=== PATIENT | male | born 1955 | race Caucasian/White ===

== ENCOUNTER 2018-03-23 11:02 | Inpatient (IN) | payer MEDICAID ==
[~2018-03-23] VITALS: Ht 175.3 cm; Wt 77.8 kg
[2018-03-23 11:35] LABS: BASOPHILS % (AUTO) 0.1 % (0-1); EOSINOPHILS # (AUTO) 0.5 X10'3 (0-0.9); EOSINOPHILS % (AUTO) 3.3 % (0-6); HEMATOCRIT 37.5 % (42.0-52.0); HEMOGLOBIN 12.1 g/dl (14.0-17.9); LYMPHOCYTES # (AUTO) 0.8 X10'3 (1.1-4.8); LYMPHOCYTES % (AUTO) 5.1 % (21-51); MEAN CORPUSCULAR HGB CONC 32.3 % (33.0-36.5); MEAN CORPUSCULAR VOLUME 83.7 FL (78-98); MEAN PLATELET VOLUME 7.6 FL (7.4-10.4); MONOCYTES % (AUTO) 6.3 % (2-12); NEUTROPHILS % (AUTO) 85.2 % (42-75); PLATELET COUNT 530 X10'3 (140-440); RED BLOOD COUNT 4.48 X10'6 (4.70-6.10); RED CELL DISTRIBUTION WIDTH 14.4 % (11.5-14.5); WHITE BLOOD COUNT 16.4 X10'3 (4.5-11.0)
[2018-03-23 11:50] LABS: ALANINE AMINOTRANSFERASE 26 U/L (12-78); ALBUMIN 2.1 G/DL (3.4-5.0); ALBUMIN/GLOBULIN RATIO 0.4 (1.1-1.5); ALKALINE PHOSPHATASE 66 IU/L (46-116); ANION GAP 13 (8-16); ASPARTATE AMINO TRANSFERASE 27 U/L (10-37); BILIRUBIN,TOTAL 0.7 MG/DL (0.1-1.0); BLOOD UREA NITROGEN 13 MG/DL (7-18); BUN/CREATININE RATIO 14.8 (5.4-32.0); CALCIUM 9.3 MG/DL (8.5-10.1); CHLORIDE 101 MMOL/L (99-107); CREATININE 0.88 MG/DL (0.60-1.10); GLUCOSE 112 MG/DL (70-104); POTASSIUM 3.7 MMOL/L (3.5-5.1); SODIUM 135 MMOL/L (135-145); TOTAL CARBON DIOXIDE 21.2 MMOL/L (24-32); TOTAL PROTEIN 6.8 G/DL (6.4-8.2); eGFR 87 ML/MIN
[2018-03-23 11:58] LABS: INR 1.2 INR; PARTIAL THROMBOPLASTIN TIME 35 SECONDS (22-32)
[2018-03-23 12:19] LABS: CLARITY,URINE CLEAR (Clear); COLOR,URINE YELLOW (Yellow); GLUCOSE, URINE NEGATIVE (Neg); KETONES,URINE NEGATIVE (Neg); LEUKOCYTE ESTERASE ,URINE NEGATIVE (Neg); NITRITES, URINE NEGATIVE (Neg); OCCULT BLOOD,URINE NEGATIVE (Neg); PH,URINE 6.5 (4.8-8.0); PROTEIN,URINE NEGATIVE (Neg)
[2018-03-23 12:20] LABS: UA COLLECTION TYPE CLN CATCH MIDSTREAM
[2018-03-23] MEDS ORDERED: normal saline 1000ML IV soln IVB ONE (12:20)
[2018-03-23] MEDS ORDERED: levoFLOXACIN-Levaquin 750MG/D5 150 ML IV STA (12:25)
[2018-03-23] MEDS ORDERED: METF500T PO (14:41)
[2018-03-23] MEDS ORDERED: pneumococcal 23-VAL P-sac vacc 25 mcg/0.5ml vial IMVAC ONE (15:00)
[2018-03-23] MEDS ORDERED: magnesium Cl slow-release 64mg tablet PO PRN (15:25)
[2018-03-23] MEDS ORDERED: HYDROcodone/acetaminophen 5mg/325mg tablet PO PRN (15:25)
[2018-03-23] MEDS ORDERED: acetaminophen 325mg tablet PO PRN ×2 (15:25)
[2018-03-23] MEDS ORDERED: magnesium 4gm in 100ml NS 100 ML IV PRN (15:25)
[2018-03-23] MEDS ORDERED: HYDROcodone/acetaminophen 10/325mg tab PO PRN (15:25)
[2018-03-23] MEDS ORDERED: ondansetron/PF 4mg/2ml inj IV PRN (15:25)
[2018-03-23] MEDS ORDERED: mag hydrox/Alum hydrox/simeth 30ml oral suspension PO PRN (15:25)
[2018-03-23] MEDS ORDERED: magnesium hydroxide 30ml (MOM) UD suspension PO PRN (15:25)
[2018-03-23] MEDS ORDERED: potassium Cl 40MEQ/NS 500ml 500 ML IV PRN ×2 (15:25)
[2018-03-23] MEDS ORDERED: potassium Cl 20 mEq SR tablet PO PRN (15:25)
[2018-03-23] MEDS ORDERED: dextrose 50%-water 50ml dispensing syringe IV PRN ×2 (15:35)
[2018-03-23] MEDS ORDERED: dextrose ORAL solution 15 GM/59 ML bottle PO PRN ×2 (15:35)
[2018-03-23] MEDS ORDERED: insulin Lispro (HumaLOG) vial - multi-dose SQ SCH (15:35)
[2018-03-23] MEDS ORDERED: MESSAGE TO PHARMACY PO ONE (15:35)
[2018-03-23] MEDS ORDERED: glucagon, human recombinant 1mg kit SUBCUT PRN (15:35)
[2018-03-23] MEDS ORDERED: CefTRIAXone/D5W-Rocephin 1gm 50 ML IV SCH (16:00)
[2018-03-23] MEDS ORDERED: azithromycin/NS 500mg/250ml 250 ML IV SCH (16:00)
[2018-03-23 16:09] LABS: HEMOGLOBIN A1C 6.2 % (4.5-6.2)
[2018-03-23 16:20] LABS: URINE AMPHETAMINE SCREEN POSITIVE (Neg); URINE BARBITUATE SCREEN NEGATIVE (Neg); URINE BENZODIAZEPINES SCREEN NEGATIVE (Neg); URINE CANNABINOID SCREEN NEGATIVE (Neg); URINE COCAINE SCREEN NEGATIVE (Neg); URINE METHADONE SCREEN NEGATIVE (Neg); URINE OPIATE SCREEN NEGATIVE (Neg); URINE PHENCYCLIDINE SCREEN NEGATIVE (Neg)
[2018-03-23 17:00] VITALS: BP 147/91
[2018-03-23 19:00] VITALS: BP 152/84
[2018-03-23] MEDS: furosemide 40mg/4ml inj IV SCH (19:22)
[2018-03-23] MEDS: metoprolol tartrate 12.5mg (1/2 tablet) PO SCH (19:22)
[2018-03-23] MEDS ORDERED: temazepam 15mg capsule PO PRN (21:00)
[2018-03-23] MEDS: insulin glargine (Lantus) pen - multi-dose SQ SCH (21:00)
[2018-03-23 23:00] VITALS: BP 146/72
[2018-03-24 02:41] LABS: BASOPHILS # (AUTO) 0.1 X10'3 (0-0.2); BASOPHILS % (AUTO) 0.6 % (0-1); EOSINOPHILS # (AUTO) 0.5 X10'3 (0-0.9); EOSINOPHILS % (AUTO) 3.3 % (0-6); HEMATOCRIT 36.2 % (42.0-52.0); HEMOGLOBIN 11.7 g/dl (14.0-17.9); LYMPHOCYTES # (AUTO) 0.9 X10'3 (1.1-4.8); LYMPHOCYTES % (AUTO) 5.5 % (21-51); MEAN CORPUSCULAR HEMOGLOBIN 27.1 PG (27.0-31.0); MEAN CORPUSCULAR HGB CONC 32.3 % (33.0-36.5); MEAN CORPUSCULAR VOLUME 83.8 FL (78-98); MEAN PLATELET VOLUME 8.1 FL (7.4-10.4); MONOCYTES # (AUTO) 0.7 X10'3 (0-0.9); MONOCYTES % (AUTO) 4.4 % (2-12); NEUTROPHILS # (AUTO) 13.7 X10'3 (1.8-7.7); NEUTROPHILS % (AUTO) 86.2 % (42-75); PLATELET COUNT 575 X10'3 (140-440); RED BLOOD COUNT 4.32 X10'6 (4.70-6.10); RED CELL DISTRIBUTION WIDTH 14.8 % (11.5-14.5); WHITE BLOOD COUNT 15.9 X10'3 (4.5-11.0)
[2018-03-24 02:44] LABS: ALANINE AMINOTRANSFERASE 23 U/L (12-78); ALBUMIN 1.8 G/DL (3.4-5.0); ALBUMIN/GLOBULIN RATIO 0.4 (1.1-1.5); ALKALINE PHOSPHATASE 67 IU/L (46-116); ANION GAP 12 (8-16); ASPARTATE AMINO TRANSFERASE 26 U/L (10-37); BILIRUBIN,TOTAL 0.5 MG/DL (0.1-1.0); BLOOD UREA NITROGEN 15 MG/DL (7-18); CALCIUM 8.9 MG/DL (8.5-10.1); CHLORIDE 102 MMOL/L (99-107); CREATININE 0.94 MG/DL (0.60-1.10); GLUCOSE 107 MG/DL (70-104); POTASSIUM 3.7 MMOL/L (3.5-5.1); SODIUM 137 MMOL/L (135-145); TOTAL CARBON DIOXIDE 22.8 MMOL/L (24-32); TOTAL PROTEIN 6.3 G/DL (6.4-8.2); eGFR 81 ML/MIN
[2018-03-24 02:48] LABS: CHOL/HDL RATIO 5.1 (0.00-4.99); CHOLESTEROL 107 MG/DL (0-200); HDL CHOLESTEROL 21 MG/DL (35-60); LDL CHOLESTEROL 74 MG/DL (50-100); MAGNESIUM 1.9 MG/DL (1.5-2.4); PHOSPHORUS 3.5 MG/DL (2.3-4.5); TRIGLYCERIDES 49 MG/DL (20-135)
[2018-03-24 03:00] VITALS: BP 137/83
[2018-03-24 07:00] VITALS: BP 147/87
[2018-03-24] MEDS: aspirin 325mg tablet PO SCH (07:36)
[2018-03-24] MEDS: levoFLOXACIN-Levaquin 750MG/D5 150 ML IV SCH (07:37)
[2018-03-24] MEDS: furosemide 40mg/4ml inj IV SCH (07:37)
[2018-03-24] MEDS: metoprolol tartrate 12.5mg (1/2 tablet) PO SCH ×2 (07:37→19:20)
[2018-03-24] MEDS: enoxaparin 40mg/0.4ml syringe SUBCUT SCH (07:38)
[2018-03-24] MEDS: K and/or MAG REPLACEMENT MC SCH (08:00)
[2018-03-24 11:00] VITALS: BP 127/75
[2018-03-24 19:00] VITALS: BP 121/82
[2018-03-24] MEDS: lactobacillus rhamnosus 10,000 MMU CELLS/CAPSULE PO SCH (19:20)
[2018-03-24] MEDS: insulin glargine (Lantus) pen - multi-dose SQ SCH (21:00)
[2018-03-24 23:00] VITALS: BP 121/76
[2018-03-25 03:00] VITALS: BP 138/79
[2018-03-25 06:06] LABS: BASOPHILS % (AUTO) 0.4 % (0-1); EOSINOPHILS # (AUTO) 1.1 X10'3 (0-0.9); HEMATOCRIT 35.9 % (42.0-52.0); HEMOGLOBIN 11.4 g/dl (14.0-17.9); LYMPHOCYTES # (AUTO) 0.9 X10'3 (1.1-4.8); LYMPHOCYTES % (AUTO) 7.9 % (21-51); MEAN CORPUSCULAR HEMOGLOBIN 26.6 PG (27.0-31.0); MEAN CORPUSCULAR HGB CONC 31.8 % (33.0-36.5); MEAN CORPUSCULAR VOLUME 83.6 FL (78-98); MONOCYTES # (AUTO) 0.7 X10'3 (0-0.9); MONOCYTES % (AUTO) 6.5 % (2-12); NEUTROPHILS # (AUTO) 8.5 X10'3 (1.8-7.7); NEUTROPHILS % (AUTO) 75.2 % (42-75); PLATELET COUNT 533 X10'3 (140-440); RED CELL DISTRIBUTION WIDTH 14.7 % (11.5-14.5); WHITE BLOOD COUNT 11.2 X10'3 (4.5-11.0)
[2018-03-25 06:38] LABS: ANION GAP 12 (8-16); BLOOD UREA NITROGEN 17 MG/DL (7-18); CALCIUM 8.6 MG/DL (8.5-10.1); CHLORIDE 104 MMOL/L (99-107); CREATININE 0.85 MG/DL (0.60-1.10); GLUCOSE 89 MG/DL (70-104); PHOSPHORUS 2.8 MG/DL (2.3-4.5); SODIUM 141 MMOL/L (135-145); TOTAL CARBON DIOXIDE 24.7 MMOL/L (24-32); eGFR > 90 ML/MIN
[2018-03-25 06:39] LABS: ALANINE AMINOTRANSFERASE 24 U/L (12-78); ALBUMIN 1.6 G/DL (3.4-5.0); ALBUMIN/GLOBULIN RATIO 0.4 (1.1-1.5); ALKALINE PHOSPHATASE 63 IU/L (46-116); ASPARTATE AMINO TRANSFERASE 28 U/L (10-37); BILIRUBIN,TOTAL 0.4 MG/DL (0.1-1.0); TOTAL PROTEIN 5.8 G/DL (6.4-8.2)
[2018-03-25 06:56] VITALS: BP 131/77
[2018-03-25] MEDS: K and/or MAG REPLACEMENT MC SCH (08:00)
[2018-03-25] MEDS: furosemide 40mg/4ml inj IV SCH (08:16)
[2018-03-25] MEDS: levoFLOXACIN-Levaquin 750MG/D5 150 ML IV SCH (08:17)
[2018-03-25] MEDS: lactobacillus rhamnosus 10,000 MMU CELLS/CAPSULE PO SCH ×2 (08:18→19:13)
[2018-03-25] MEDS: metoprolol tartrate 12.5mg (1/2 tablet) PO SCH ×2 (08:18→19:13)
[2018-03-25] MEDS: enoxaparin 40mg/0.4ml syringe SUBCUT SCH (08:18)
[2018-03-25] MEDS: aspirin 325mg tablet PO SCH (08:22)
[2018-03-25] MEDS: potassium Cl 20 mEq SR tablet PO PRN ×3 (12:09→22:58)
[2018-03-25 14:48] VITALS: BP 113/67
[2018-03-25 19:00] VITALS: BP 140/74
[2018-03-25] MEDS: insulin glargine (Lantus) pen - multi-dose SQ SCH (21:00)
[2018-03-25 23:00] VITALS: BP 134/78
[2018-03-26 03:00] VITALS: BP 143/83
[2018-03-26 05:24] LABS: BASOPHILS % (AUTO) 0.5 % (0-1); EOSINOPHILS # (AUTO) 1.3 X10'3 (0-0.9); EOSINOPHILS % (AUTO) 11.8 % (0-6); HEMATOCRIT 35.3 % (42.0-52.0); HEMOGLOBIN 11.3 g/dl (14.0-17.9); LYMPHOCYTES # (AUTO) 1.1 X10'3 (1.1-4.8); LYMPHOCYTES % (AUTO) 10.5 % (21-51); MEAN CORPUSCULAR HEMOGLOBIN 26.7 PG (27.0-31.0); MEAN CORPUSCULAR HGB CONC 32.1 % (33.0-36.5); MEAN CORPUSCULAR VOLUME 83.1 FL (78-98); MEAN PLATELET VOLUME 7.8 FL (7.4-10.4); MONOCYTES # (AUTO) 0.8 X10'3 (0-0.9); MONOCYTES % (AUTO) 7.9 % (2-12); NEUTROPHILS # (AUTO) 7.4 X10'3 (1.8-7.7); NEUTROPHILS % (AUTO) 69.3 % (42-75); PLATELET COUNT 649 X10'3 (140-440); RED BLOOD COUNT 4.24 X10'6 (4.70-6.10); RED CELL DISTRIBUTION WIDTH 14.6 % (11.5-14.5); WHITE BLOOD COUNT 10.7 X10'3 (4.5-11.0)
[2018-03-26 05:36] LABS: ALANINE AMINOTRANSFERASE 27 U/L (12-78); ALBUMIN 1.7 G/DL (3.4-5.0); ALBUMIN/GLOBULIN RATIO 0.4 (1.1-1.5); ALKALINE PHOSPHATASE 60 IU/L (46-116); ANION GAP 9 (8-16); ASPARTATE AMINO TRANSFERASE 25 U/L (10-37); BILIRUBIN,TOTAL 0.3 MG/DL (0.1-1.0); BLOOD UREA NITROGEN 18 MG/DL (7-18); BUN/CREATININE RATIO 20.7 (5.4-32.0); CALCIUM 8.6 MG/DL (8.5-10.1); CHLORIDE 106 MMOL/L (99-107); CREATININE 0.87 MG/DL (0.60-1.10); GLUCOSE 95 MG/DL (70-104); MAGNESIUM 1.8 MG/DL (1.5-2.4); POTASSIUM 3.8 MMOL/L (3.5-5.1); SODIUM 140 MMOL/L (135-145); TOTAL CARBON DIOXIDE 24.9 MMOL/L (24-32); TOTAL PROTEIN 5.8 G/DL (6.4-8.2); eGFR 89 ML/MIN
[2018-03-26 06:00] VITALS: BP 144/85
[2018-03-26] MEDS: levoFLOXACIN-Levaquin 750MG/D5 150 ML IV SCH (07:46)
[2018-03-26] MEDS: furosemide 40mg/4ml inj IV SCH (07:46)
[2018-03-26] MEDS: enoxaparin 40mg/0.4ml syringe SUBCUT SCH (07:47)
[2018-03-26] MEDS: metoprolol tartrate 12.5mg (1/2 tablet) PO SCH (07:47)
[2018-03-26] MEDS: aspirin 325mg tablet PO SCH (07:48)
[2018-03-26] MEDS: lactobacillus rhamnosus 10,000 MMU CELLS/CAPSULE PO SCH (07:48)
[2018-03-26 11:00] VITALS: BP 113/77
[2018-03-26] MEDS ORDERED: FURO40TA4 PO (13:13)
[2018-03-26] MEDS ORDERED: LEVO750T21 PO (13:13)
[2018-03-26] MEDS ORDERED: LACT1CAP26 PO (13:13)
[2018-03-26] MEDS ORDERED: ATOR10TA PO (13:13)
[2018-03-26] MEDS ORDERED: ASPI81TA52 PO (13:13)
[2018-03-26] MEDS ORDERED: METO25TA6 PO (13:13)
== END 2018-03-26 16:39 | disposition home or self-care (01) | DRG 720 ==
LOC: ER 11:03 → ED HOLD 15:21 → PCU 3S 17:00
PROVIDERS: ADMIT Family Medicine; ATTEND Hospitalist
DX: A41.9 Sepsis, unspecified organism (principal); I21.A1 Myocardial infarction type 2; I50.21 Acute systolic (congestive) heart failure; E11.40 Type 2 diabetes mellitus with diabetic neuropathy, unspecified; I11.0 Hypertensive heart disease with heart failure; J18.9 Pneumonia, unspecified organism; R91.8 Other nonspecific abnormal finding of lung field; E78.5 Hyperlipidemia, unspecified; R09.02 Hypoxemia; Z66 Do not resuscitate; Z82.49 Family history of ischemic heart disease and other diseases of the circulatory system; Z83.3 Family history of diabetes mellitus; Z91.14 Patient's other noncompliance with medication regimen; Z87.891 Personal history of nicotine dependence; Z79.84 Long term (current) use of oral hypoglycemic drugs; Z81.1 Family history of alcohol abuse and dependence; Z80.8 Family history of malignant neoplasm of other organs or systems; Z79.899 Other long term (current) drug therapy; Z71.51 Drug abuse counseling and surveillance of drug abuser; Z79.82 Long term (current) use of aspirin
CPT/HCPCS: 36415; 71045; 80053; 80061; 80305; 81003; 82948; 83036; 83605; 83735; 83880; 84100; 84145; 84484; 85025; 85610; 85730; 87040; 87070; 87502; 87503; 90732; 93005; 93306; 96365; 99285; G0378; J0696; J1650; J1815; J1940; J1956

== ENCOUNTER 2018-11-23 08:21 | Day surgery (SDC) | payer MEDICAID ==
[~2018-11-23] VITALS: Ht 175.3 cm; Wt 80.3 kg
[2018-11-23] VITALS (20 sets, daily range): BP systolic 108–155; BP diastolic 62–90
[~2018-11-23 08:21] MED LIST: ASPI81TA52 PO; ATOR10TA PO; LACT1CAP26 PO; METF500T PO; METO25TA6 PO
[2018-11-23] MEDS ORDERED: normal saline 1000ml 1,000 ML IV PRN (08:45)
[2018-11-23] MEDS ORDERED: ASPI81TA52 PO (09:00)
[2018-11-23] MEDS ORDERED: ATOR10TA87 PO (09:00)
[2018-11-23] MEDS ORDERED: METO5DIS PO (09:00)
[2018-11-23] MEDS ORDERED: METF500T PO (09:00)
[2018-11-23] MEDS ORDERED: CLOP75TA15 PO (09:00)
[2018-11-23] MEDS ORDERED: FURO40TA4 PO (09:02)
[2018-11-23 09:08] LABS: BASOPHILS # (AUTO) 0.1 X10'3 (0-0.2); BASOPHILS % (AUTO) 0.9 % (0-1); EOSINOPHILS # (AUTO) 0.5 X10'3 (0-0.9); EOSINOPHILS % (AUTO) 6.2 % (0-6); HEMATOCRIT 43.5 % (42.0-52.0); HEMOGLOBIN 14.4 g/dl (14.0-17.9); LYMPHOCYTES # (AUTO) 1.4 X10'3 (1.1-4.8); LYMPHOCYTES % (AUTO) 17.6 % (21-51); MEAN CORPUSCULAR HGB CONC 33.2 g/dL (33.0-36.5); MEAN CORPUSCULAR VOLUME 87.3 FL (78-98); MEAN PLATELET VOLUME 7.6 FL (7.4-10.4); MONOCYTES # (AUTO) 0.9 X10'3 (0-0.9); MONOCYTES % (AUTO) 11.5 % (2-12); NEUTROPHILS # (AUTO) 5.1 X10'3 (1.8-7.7); NEUTROPHILS % (AUTO) 63.8 % (42-75); PLATELET COUNT 246 X10'3 (140-440); RED BLOOD COUNT 4.98 X10'6 (4.70-6.10); RED CELL DISTRIBUTION WIDTH 13.3 % (11.5-14.5); WHITE BLOOD COUNT 7.9 X10'3 (4.5-11.0)
[2018-11-23 09:10] LABS: ANION GAP 9 (8-16); BLOOD UREA NITROGEN 25 MG/DL (7-18); BUN/CREATININE RATIO 23.4 (5.4-32.0); CALCIUM 9.3 MG/DL (8.5-10.1); CHLORIDE 104 MMOL/L (99-107); CREATININE 1.07 MG/DL (0.60-1.10); GLUCOSE 95 MG/DL (70-104); POTASSIUM 4.4 MMOL/L (3.5-5.1); SODIUM 137 MMOL/L (135-145); TOTAL CARBON DIOXIDE 23.6 MMOL/L (24-32); eGFR 70 ML/MIN
[2018-11-23] MEDS ORDERED: fentaNYL/PF 50MCG/1 ML 2ML syringe ONE (09:58)
[2018-11-23] MEDS ORDERED: midazolam 2 mg/2 ml injection ONE (09:58)
[2018-11-23] MEDS ORDERED: pneumococcal 23-VAL P-sac vacc 25 mcg/0.5ml vial IMVAC ONE (10:00)
[2018-11-23] MEDS ORDERED: sodium chloride 0.45% 1,000 ML IV SCH (11:15)
== END 2018-11-23 14:06 | disposition home or self-care (01) ==
LOC: SSTAY O 08:21
PROVIDERS: ATTEND Radiology Vascular & Interventional Radiology
DX: R91.1 Solitary pulmonary nodule (principal); Z87.891 Personal history of nicotine dependence; Z79.899 Other long term (current) drug therapy; Z79.01 Long term (current) use of anticoagulants; Z79.4 Long term (current) use of insulin; Z79.82 Long term (current) use of aspirin
CPT/HCPCS: 32405; 36415; 71045; 77012; 80048; 82948; 85025; 85610; 99152; 99153; C2613; J2250; J3010; J7030

== ENCOUNTER 2020-06-22 03:28 | Inpatient (IN) | payer MEDICAID ==
[~2020-06-22] VITALS: Ht 172.7 cm; Wt 79.4 kg
[2020-06-22] VITALS (15 sets, daily range): BP systolic 132–168; BP diastolic 77–100
[~2020-06-22 03:28] MED LIST changes: -ATOR10TA PO; +ATOR10TA87 PO; +CLOP75TA15 PO; +FURO40TA4 PO; -LACT1CAP26 PO; -METO25TA6 PO; +METO5DIS PO
[2020-06-22] MEDS ORDERED: normal saline 1000ml 1,000 ML IV ONE (03:50)
[2020-06-22 04:05] LABS: BASOPHILS # (AUTO) 0.1 X10'3 (0-0.2); BASOPHILS % (AUTO) 0.8 % (0-1); EOSINOPHILS # (AUTO) 0.8 X10'3 (0-0.9); EOSINOPHILS % (AUTO) 5.8 % (0-6); HEMATOCRIT 39.3 % (42.0-52.0); HEMOGLOBIN 12.6 g/dl (14.0-17.9); LYMPHOCYTES % (AUTO) 7.4 % (21-51); MEAN CORPUSCULAR HEMOGLOBIN 27.5 PG (27.0-31.0); MEAN PLATELET VOLUME 8.3 FL (7.4-10.4); MONOCYTES # (AUTO) 1.2 X10'3 (0-0.9); MONOCYTES % (AUTO) 8.8 % (2-12); NEUTROPHILS # (AUTO) 10.7 X10'3 (1.8-7.7); NEUTROPHILS % (AUTO) 77.2 % (42-75); PLATELET COUNT 313 X10'3 (140-440); RED BLOOD COUNT 4.57 X10'6 (4.70-6.10); RED CELL DISTRIBUTION WIDTH 14.4 % (11.5-14.5); WHITE BLOOD COUNT 13.8 X10'3 (4.5-11.0)
[2020-06-22 04:20] LABS: D-DIMER 1.47 MG/L FEU (0-0.50); PARTIAL THROMBOPLASTIN TIME 29 SECONDS (22-32)
[2020-06-22] MEDS ORDERED: aspirin 81mg tab.chew PO ONE (04:25)
[2020-06-22] MEDS ORDERED: albuterol 2.5 MG/3 ML nebule NEB ONE (04:25)
[2020-06-22] MEDS ORDERED: heparin 10,000 units/1 ML INJ IV ONE (04:25)
[2020-06-22] MEDS ORDERED: normal saline 1000ML IV soln IVB ONE (04:25)
--- NOTE | 2020-06-22 04:28 | NUR ---
O2 SAT DROPPED TO 81% ON 6 L NC. PT REPORTS INCREASED SOB AND IN DISTRESS. NRB AT 15L. O2 SAT AT 98%. PT STILL REPORTING ANXIETY AND SOB. NINA CRAIG AWARE
[2020-06-22 04:33] LABS: ALANINE AMINOTRANSFERASE 42 U/L (12-78); ALBUMIN 3.1 G/DL (3.4-5.0); ALBUMIN/GLOBULIN RATIO 0.8 (1.1-1.5); ALKALINE PHOSPHATASE 78 IU/L (46-116); ANION GAP 11 (8-16); ASPARTATE AMINO TRANSFERASE 42 U/L (10-37); BILIRUBIN,TOTAL 0.4 MG/DL (0.1-1.0); BLOOD UREA NITROGEN 20 MG/DL (7-18); C-REACTIVE PROTEIN 5.33 MG/DL (0.0-0.5); CALCIUM 8.7 MG/DL (8.5-10.1); CHLORIDE 108 MMOL/L (99-107); GLUCOSE 152 MG/DL (70-104); POTASSIUM 3.5 MMOL/L (3.5-5.1); SODIUM 142 MMOL/L (135-145); TOTAL CARBON DIOXIDE 23.1 MMOL/L (24-32); TOTAL PROTEIN 7.1 G/DL (6.4-8.2); eGFR 75 ML/MIN
[2020-06-22] MEDS ORDERED: iohexol 350MG/ML 100ml bottle IV ONE (04:34)
[2020-06-22] MEDS ORDERED: nitroGLYCERIN 0.4mg/hour patch TD ONE (04:35)
[2020-06-22] MEDS ORDERED: nitroGLYCERIN 0.4mg SUBLingual tab SL PRN (04:35)
[2020-06-22] MEDS ORDERED: enalaprilat dihydrate 2.5mg/2ml vial IV ONE (04:35)
--- NOTE | 2020-06-22 04:40 | NUR ---
INCREASE IN SOB AND BP ELEVATED. NINA AT BS. ORDERS TO FOLLOW
[2020-06-22 04:41] LABS: TROPONIN I 2.39 NG/ML (0.0-0.05)
[2020-06-22 04:44] LABS: ABG BASE EXCESS -12.1 mmol/L (-2.0-2.0); ABG HCO3 16.7 mmol/L (22.0-26.0); ABG OXYGEN SATURATION 91.3 % (94-97); ABG PCO2 (T) 49.6 mmHg (35.0-48.0); ALLEN'S TEST POSITIVE; FCOHb 0.6 % (0.0-3.9); FMetHb 0.1 % (0.0-1.5); FO2Hb 90.7 % (94-97); TOTAL HEMOGLOBIN 13.7 G/dl (14.0-18.0)
[2020-06-22] MEDS: heparin 25,000 UNIT/250ml bag 250 ML IV SCH (04:45)
[2020-06-22] MEDS ORDERED: nitroGLYCERIN-Tridil 50MG/D5W 250 ML IV PRN (04:50)
[2020-06-22] MEDS: nitroGLYCERIN-Tridil 50MG/D5W 250 ML IV ONE ×2 (04:50→05:03)
--- NOTE | 2020-06-22 05:02 | NUR ---
PER NINA CRAIG, NITRO DRIP START RATE 20 MCG/MIN
[2020-06-22] MEDS ORDERED: LOSA25TA41 PO (05:20)
--- NOTE | 2020-06-22 05:40 | NUR ---
PT BACK FROM CT. MOVED TO BED 3 BETTER LINE OF SIGHT FROM NURSES STATION
--- NOTE | 2020-06-22 06:16 | NUR ---
Per RL Armstrong NS @ 200ml stopped d/t increased BP; no running currently.
[2020-06-22] MEDS ORDERED: furosemide 10 MG/1 ML 10ml inj IV ONE (06:25)
--- NOTE | 2020-06-22 09:00 | NUR ---
Patient arrived to unit from ED and ambulated to hospital bed with stable gait. Placed on monitor. Vital signs stable. Patient tolerated NRB/Nasal cannula. Hold Bipap for now. Patient A/Ox3
[2020-06-22] MEDS ORDERED: metFORMIN 500mg tablet PO SCH (09:10)
[2020-06-22] MEDS: aspirin 81mg tablet.DR PO SCH (09:29)
[2020-06-22] MEDS: atorvastatin 10mg tablet PO SCH (09:30)
[2020-06-22] MEDS: losartan 25mg tablet PO SCH (09:30)
[2020-06-22] MEDS ORDERED: metoprolol tartrate 12.5mg (1/2 tablet) PO SCH (10:15)
[2020-06-22] MEDS ORDERED: glucagon, human recombinant 1mg kit SUBCUT PRN (10:35)
[2020-06-22] MEDS ORDERED: dextrose 50%-water 50ml dispensing syringe IV PRN ×2 (10:35)
[2020-06-22] MEDS ORDERED: insulin Lispro (HumaLOG) vial - multi-dose SQ SCH (10:35)
[2020-06-22] MEDS ORDERED: dextrose ORAL solution 15 GM/59 ML bottle PO PRN ×2 (10:35)
[2020-06-22] MEDS: furosemide 20MG tablet PO SCH (10:41)
[2020-06-22 10:43] LABS: ABG BASE EXCESS -0.6 mmol/L (-2.0-2.0); ABG HCO3 22.4 mmol/L (22.0-26.0); ABG OXYGEN SATURATION 90.2 % (94-97); ABG PCO2 (T) 31.4 mmHg (35.0-48.0); ABG PO2 (T) 55.4 mmHg (75.0-100.0); ALLEN'S TEST Yes; FCOHb 0.2 % (0.0-3.9); FMetHb 0.1 % (0.0-1.5); FO2Hb 89.9 % (94-97); PATIENT TEMPERATURE 36.6; TOTAL HEMOGLOBIN 12.8 G/dl (14.0-18.0)
[2020-06-22] MEDS: heparin 10,000 units/1 ML INJ IV PRN ×2 (13:22→21:15)
--- NOTE | 2020-06-22 16:50 | NUR ---
Dr. Beckford aware of critical Troponins (Trending down) as well as EKGs. No new orders. Continue to monitor at this time.
--- NOTE | 2020-06-22 18:15 | NUR ---
Patient in room ICU 2042. I have received report from Moisés SHINE and had the opportunity to ask questions and assume patient care. Pt. is resting comfortably. His BP is elevated. Dr. Medina came by, would like to switch his metoprolol tartrate 12.5 mg daily to metoprolol succinate 25mg BID. He also wants an Echocardiogram ordered.
--- NOTE | 2020-06-22 18:23 | NUR ---
Problems reprioritized. Patient report given, questions answered & plan of care reviewed with Eva SHINE.
[2020-06-22] MEDS: insulin glargine (Lantus) pen - multi-dose SQ SCH (21:00)
[2020-06-22] MEDS: metoprolol succinate 25mg (24-HOUR) SR. Tablet PO SCH (21:13)
[2020-06-23] VITALS (18 sets, daily range): BP systolic 134–187; BP diastolic 75–103
[2020-06-23] MEDS: heparin 25,000 UNIT/250ml bag 250 ML IV SCH (03:01)
[2020-06-23 03:17] LABS: BASOPHILS # (AUTO) 0.1 X10'3 (0-0.2); BASOPHILS % (AUTO) 0.9 % (0-1); EOSINOPHILS # (AUTO) 0.8 X10'3 (0-0.9); EOSINOPHILS % (AUTO) 9.1 % (0-6); HEMATOCRIT 35.1 % (42.0-52.0); HEMOGLOBIN 11.6 g/dl (14.0-17.9); LYMPHOCYTES # (AUTO) 1.2 X10'3 (1.1-4.8); LYMPHOCYTES % (AUTO) 13.7 % (21-51); MEAN CORPUSCULAR HEMOGLOBIN 27.8 PG (27.0-31.0); MEAN CORPUSCULAR HGB CONC 32.9 g/dL (33.0-36.5); MEAN CORPUSCULAR VOLUME 84.3 FL (78-98); MEAN PLATELET VOLUME 8.3 FL (7.4-10.4); MONOCYTES # (AUTO) 0.8 X10'3 (0-0.9); MONOCYTES % (AUTO) 8.9 % (2-12); NEUTROPHILS % (AUTO) 67.4 % (42-75); PLATELET COUNT 283 X10'3 (140-440); RED BLOOD COUNT 4.17 X10'6 (4.70-6.10); RED CELL DISTRIBUTION WIDTH 14.4 % (11.5-14.5); WHITE BLOOD COUNT 8.8 X10'3 (4.5-11.0)
[2020-06-23 03:26] LABS: ALBUMIN 2.6 G/DL (3.4-5.0); ANION GAP 10 (8-16); BLOOD UREA NITROGEN 13 MG/DL (7-18); BUN/CREATININE RATIO 14.8 (5.4-32.0); CALCIUM 8.7 MG/DL (8.5-10.1); CHLORIDE 107 MMOL/L (99-107); CREATININE 0.88 MG/DL (0.60-1.10); GLUCOSE 100 MG/DL (70-104); SODIUM 143 MMOL/L (135-145); TOTAL CARBON DIOXIDE 25.9 MMOL/L (24-32); eGFR 87 ML/MIN
[2020-06-23 03:31] LABS: TROPONIN I 1.48 NG/ML (0.0-0.05)
[2020-06-23] MEDS ORDERED: potassium Cl 20 mEq SR tablet PO PRN (03:40)
[2020-06-23] MEDS ORDERED: potassium Cl 40MEQ/1/2NS 520ml 520 ML IV PRN (03:40)
--- NOTE | 2020-06-23 06:16 | NUR ---
Problems reprioritized. Patient report given, questions answered & plan of care reviewed with Moisés SHINE.
[2020-06-23] MEDS: metoprolol succinate 25mg (24-HOUR) SR. Tablet PO SCH ×2 (07:22→11:40)
[2020-06-23] MEDS: furosemide 20MG tablet PO SCH (07:22)
[2020-06-23] MEDS: aspirin 81mg tablet.DR PO SCH (07:22)
[2020-06-23] MEDS: atorvastatin 10mg tablet PO SCH (07:22)
[2020-06-23] MEDS: losartan 25mg tablet PO SCH (07:22)
[2020-06-23] MEDS ORDERED: metoprolol tartrate 12.5mg (1/2 tablet) PO SCH (08:00)
[2020-06-23] MEDS: K and/or MAG REPLACEMENT MC SCH (08:00)
[2020-06-23] MEDS: potassium Cl 20 mEq SR tablet PO PRN ×2 (08:52→12:32)
--- NOTE | 2020-06-23 09:30 | NUR ---
Notified lab about scheduled cardiac ptt draw; they report they will send someone up for lab draw.
[2020-06-23] MEDS ORDERED: CARV-49 PO (11:36)
[2020-06-23] MEDS ORDERED: ATOR80TA PO (11:36)
[2020-06-23] MEDS ORDERED: clopidogrel 300mg tablet PO ONE (12:45)
--- NOTE | 2020-06-23 13:34 | NUR ---
Per Dr. Beckford, hold 100mg Metoprolol Succinate today, but give 25mg dose tonight and restart with 100mg Metoprolol Succinate tomorrow morning at 0800 and daily.
--- NOTE | 2020-06-23 15:10 | NUR ---
Patient transferred to [facility] with all belongings. Patient report given to Renay SHINE with all questions answered.
--- NOTE | 2020-06-23 15:30 | NUR ---
Patient in room PCU 3025. I have received report from RL Curiel and had the opportunity to ask questions and assume patient care.
--- NOTE | 2020-06-23 18:31 | NUR ---
Problems reprioritized. Patient report given, questions answered & plan of care reviewed with RL Martinez.
--- NOTE | 2020-06-23 18:34 | NUR ---
Patient in room PCU 3025. I have received report from Renay SHINE and had the opportunity to ask questions and assume patient care.
[2020-06-23] MEDS: spironolactone 25 MG tablet PO SCH (19:51)
[2020-06-23] MEDS ORDERED: metoprolol succinate 25mg (24-HOUR) SR. Tablet PO ONE (20:00)
[2020-06-23] MEDS: mineral oil/petrolatum, white cream 113gm jar TP SCH (20:04)
[2020-06-23] MEDS: insulin glargine (Lantus) pen - multi-dose SQ SCH (21:00)
[2020-06-23] MEDS ORDERED: non-formulary drug (Atorvastatin Calcium* (Lipitor*) 1 TABLET) PO SCH (21:00)
--- NOTE | 2020-06-23 23:02 | NUR ---
PAGER ID: [phone] MESSAGE: [id number] Vitaly Rangel. This patient was transferred from icu earlier today but there's no hospitalist under this patients care. He converted to a junctional rhythm around 2100, do you want me ordering an EKG? Thanks, Juan [phone].
[2020-06-24 02:00] VITALS: BP 154/98
[2020-06-24 06:00] VITALS: BP 146/103
--- NOTE | 2020-06-24 06:14 | NUR ---
Problems reprioritized. Patient report given, questions answered & plan of care reviewed with Chuck SHINE.
[2020-06-24 07:30] LABS: MAGNESIUM 2.1 MG/DL (1.5-2.4); POTASSIUM 3.9 MMOL/L (3.5-5.1)
[2020-06-24] MEDS: atorvastatin 10mg tablet PO SCH (07:33)
[2020-06-24] MEDS: losartan 50mg tablet PO SCH (07:35)
[2020-06-24] MEDS: furosemide 20MG tablet PO SCH (07:36)
[2020-06-24] MEDS: spironolactone 25 MG tablet PO SCH ×2 (07:37→20:15)
[2020-06-24] MEDS: aspirin 81mg tablet.DR PO SCH (07:37)
[2020-06-24] MEDS: metoprolol succinate 25mg (24-HOUR) SR. Tablet PO SCH (07:38)
[2020-06-24] MEDS: K and/or MAG REPLACEMENT MC SCH (08:00)
[2020-06-24] MEDS ORDERED: metFORMIN 500mg tablet PO SCH (08:00)
[2020-06-24] MEDS: mineral oil/petrolatum, white cream 113gm jar TP SCH ×2 (08:00→20:15)
[2020-06-24] MEDS: clopidogrel 75mg tablet PO SCH (10:34)
[2020-06-24 11:00] VITALS: BP 136/90
[2020-06-24 15:00] VITALS: BP 151/89
[2020-06-24 18:00] VITALS: BP 147/92
--- NOTE | 2020-06-24 19:32 | NUR ---
Patient in room PCU 3025. I have received report from Chuck SHINE and had the opportunity to ask questions and assume patient care.
[2020-06-24] MEDS: insulin glargine (Lantus) pen - multi-dose SQ SCH (21:00)
[2020-06-25] VITALS (7 sets, daily range): BP systolic 117–161; BP diastolic 61–94
--- NOTE | 2020-06-25 06:30 | NUR ---
Patient in room PCU 3025. I have received report from graham and had the opportunity to ask questions and assume patient care.
--- NOTE | 2020-06-25 06:33 | NUR ---
Patient in room PCU 3025. I have received report from Juan SHINE and had the opportunity to ask questions and assume patient care.
[2020-06-25] MEDS: K and/or MAG REPLACEMENT MC SCH (08:00)
[2020-06-25] MEDS: aspirin 81mg tablet.DR PO SCH (08:02)
[2020-06-25] MEDS: metoprolol succinate 25mg (24-HOUR) SR. Tablet PO SCH (08:02)
[2020-06-25] MEDS: atorvastatin 10mg tablet PO SCH (08:02)
[2020-06-25] MEDS: furosemide 20MG tablet PO SCH (08:02)
[2020-06-25] MEDS: spironolactone 25 MG tablet PO SCH ×2 (08:02→19:45)
[2020-06-25] MEDS: losartan 50mg tablet PO SCH (08:03)
[2020-06-25] MEDS: clopidogrel 75mg tablet PO SCH (08:03)
[2020-06-25] MEDS: mineral oil/petrolatum, white cream 113gm jar TP SCH ×2 (08:03→19:45)
--- NOTE | 2020-06-25 08:34 | NUR ---
3025B-Beverly ALEJANDRE pt had a 7beat run of [employer], pt is asymptomatic VSS. Thanks Theodore Ext [phone] paged MD
--- NOTE | 2020-06-25 15:38 | NUR ---
Patient with no complaints of pain, ambulating in hallway several times today. Bed locked in lowest position, call light within reach, patient instructed to call for assistance, verbalized understanding.
--- NOTE | 2020-06-25 18:23 | NUR ---
Patient in room PCU 3025. I have received report from Theodore and had the opportunity to ask questions and assume patient care.
[2020-06-25] MEDS: insulin glargine (Lantus) pen - multi-dose SQ SCH (21:00)
[2020-06-25 21:19] LABS: BASOPHILS # (AUTO) 0.1 X10'3 (0-0.2); BASOPHILS % (AUTO) 0.5 % (0-1); EOSINOPHILS # (AUTO) 0.7 X10'3 (0-0.9); EOSINOPHILS % (AUTO) 6.3 % (0-6); HEMATOCRIT 40.5 % (42.0-52.0); HEMOGLOBIN 13.3 g/dl (14.0-17.9); LYMPHOCYTES # (AUTO) 0.8 X10'3 (1.1-4.8); LYMPHOCYTES % (AUTO) 7.9 % (21-51); MEAN CORPUSCULAR HEMOGLOBIN 27.9 PG (27.0-31.0); MEAN CORPUSCULAR HGB CONC 32.8 g/dL (33.0-36.5); MEAN CORPUSCULAR VOLUME 85.2 FL (78-98); MEAN PLATELET VOLUME 7.7 FL (7.4-10.4); MONOCYTES # (AUTO) 1.2 X10'3 (0-0.9); MONOCYTES % (AUTO) 11.6 % (2-12); NEUTROPHILS # (AUTO) 7.9 X10'3 (1.8-7.7); NEUTROPHILS % (AUTO) 73.7 % (42-75); PLATELET COUNT 371 X10'3 (140-440); RED BLOOD COUNT 4.76 X10'6 (4.70-6.10); RED CELL DISTRIBUTION WIDTH 13.9 % (11.5-14.5); WHITE BLOOD COUNT 10.7 X10'3 (4.5-11.0)
[2020-06-25 21:32] LABS: ALANINE AMINOTRANSFERASE 28 U/L (12-78); ALBUMIN 3.1 G/DL (3.4-5.0); ALBUMIN/GLOBULIN RATIO 0.7 (1.1-1.5); ALKALINE PHOSPHATASE 82 IU/L (46-116); ANION GAP 10 (8-16); ASPARTATE AMINO TRANSFERASE 14 U/L (10-37); BILIRUBIN,TOTAL 0.4 MG/DL (0.1-1.0); BLOOD UREA NITROGEN 16 MG/DL (7-18); BUN/CREATININE RATIO 15.2 (5.4-32.0); CALCIUM 9.9 MG/DL (8.5-10.1); CHLORIDE 102 MMOL/L (99-107); CREATININE 1.05 MG/DL (0.60-1.10); GLUCOSE 81 MG/DL (70-104); POTASSIUM 4.5 MMOL/L (3.5-5.1); SODIUM 139 MMOL/L (135-145); TOTAL CARBON DIOXIDE 27.3 MMOL/L (24-32); TOTAL PROTEIN 7.4 G/DL (6.4-8.2); eGFR 71 ML/MIN
[2020-06-26] VITALS (16 sets, daily range): BP systolic 100–154; BP diastolic 61–100
[2020-06-26] MEDS: normal saline 1000ml 1,000 ML IV SCH ×2 (05:23→19:07)
--- NOTE | 2020-06-26 06:06 | NUR ---
Problems reprioritized. Patient report given, questions answered & plan of care reviewed with Theodore SHINE.
--- NOTE | 2020-06-26 06:32 | NUR ---
Patient in room PCU 3025. I have received report from Juan SHINE and had the opportunity to ask questions and assume patient care.
[2020-06-26 07:18] LABS: MAGNESIUM 2.3 MG/DL (1.5-2.4); POTASSIUM 4.5 MMOL/L (3.5-5.1)
[2020-06-26] MEDS: spironolactone 25 MG tablet PO SCH ×2 (08:12→19:16)
[2020-06-26] MEDS: metoprolol succinate 25mg (24-HOUR) SR. Tablet PO SCH (08:12)
[2020-06-26] MEDS: losartan 50mg tablet PO SCH (08:12)
[2020-06-26] MEDS: furosemide 20MG tablet PO SCH (08:12)
[2020-06-26] MEDS: atorvastatin 10mg tablet PO SCH (08:12)
[2020-06-26] MEDS: clopidogrel 75mg tablet PO SCH (08:12)
[2020-06-26] MEDS: aspirin 81mg tablet.DR PO SCH (08:12)
[2020-06-26] MEDS: mineral oil/petrolatum, white cream 113gm jar TP SCH ×2 (08:14→19:07)
--- NOTE | 2020-06-26 10:13 | NUR ---
Patient resting in bed comfortably. Family at bedside. No complaints of pain at this time. Bed locked in lowest position, call light within reach, instructed to call for assistance, verbalized understanding.
[2020-06-26] MEDS ORDERED: fentaNYL/PF 50MCG/1 ML 2ML syringe ONE (13:51)
[2020-06-26] MEDS ORDERED: iohexol 350 MG/ML 50ML vial IV ONE ×2 (13:51→14:36)
[2020-06-26] MEDS ORDERED: midazolam 1 mg/ML 2ml injection ONE (13:51)
[2020-06-26] MEDS ORDERED: iohexol 350MG/ML 100ml bottle IV ONE (13:51)
[2020-06-26] MEDS ORDERED: LIDOcaine 1% (10mg/ml)w/preservative injection 20ml MDV ONE (13:51)
[2020-06-26] MEDS ORDERED: ondansetron/PF 4mg/2ml inj IV PRN (15:15)
[2020-06-26] MEDS ORDERED: HYDROcodone/acetaminophen 10/325mg tab PO PRN (15:15)
[2020-06-26] MEDS ORDERED: HYDROcodone/acetaminophen 5mg/325mg tablet PO PRN (15:15)
[2020-06-26] MEDS ORDERED: OXAZEpam 15mg capsule PO PRN (15:15)
[2020-06-26] MEDS ORDERED: proCHLORperazine 10 MG/2 ml inj IV PRN (15:15)
--- NOTE | 2020-06-26 15:45 | NUR ---
Initial: Pt admit DX UT, R pneumothorax, hypertensive emergency-resolved, pulmonary edema, and acute on chronic heart failure EF 20% per EMR. PO 100% avg carb controlled meals this admit w/ hx T2DM A1C less than 7. Currently NPO for cardiac cath today per EMR. No nutrition concerns at this time. Will continue to monitor. Rec: 1. advance to carb controlled diet as medically indicated s/p cardiac cath 2. routine bowel care 3. weekly wts Addendum: 06/26/20 at [address] Amended: Links added.
--- NOTE | 2020-06-26 15:48 | NUR ---
Patient back on unit from heart cath, NS at 100ml. Rt groin site clean dry and intact, palpable Peripheral pulse to rt foot. No complaints of pain, VSS.
[2020-06-26 16:32] LABS: CLARITY,URINE CLEAR (Clear); COLOR,URINE YELLOW (Yellow); GLUCOSE, URINE NEGATIVE (Neg); KETONES,URINE NEGATIVE (Neg); LEUKOCYTE ESTERASE ,URINE NEGATIVE (Neg); NITRITES, URINE NEGATIVE (Neg); OCCULT BLOOD,URINE TRACE-INTACT (Neg); PROTEIN,URINE NEGATIVE (Neg)
[2020-06-26 16:33] LABS: UA COLLECTION TYPE CLN CATCH MIDSTREAM
[2020-06-26 16:38] LABS: SQUAMOUS EPITHELIAL CELL,UR FEW /LPF (FEW)
[2020-06-26 16:39] LABS: BACTERIA,URINE FEW /HPF (Neg); RBC,URINE 0-2 /HPF (0-2); SPERM FEW /HPF (NEGATIVE); WBC,URINE 0-4 /HPF (0-4)
[2020-06-26 21:27] LABS: ABG BASE EXCESS -0.2 mmol/L (-2.0-2.0); ABG HCO3 21.5 mmol/L (22.0-26.0); ABG OXYGEN SATURATION 93.6 % (94-97); ABG PCO2 (T) 27.2 mmHg (35.0-48.0); ABG PO2 (T) 64.2 mmHg (75.0-100.0); FCOHb 0.4 % (0.0-3.9); FMetHb 0.3 % (0.0-1.5); FO2Hb 92.9 % (94-97); TOTAL HEMOGLOBIN 13.1 G/dl (14.0-18.0)
[2020-06-26] MEDS ORDERED: albuterol 2.5 MG/3 ML nebule NEB ONE (21:45)
[2020-06-26] MEDS ORDERED: albuterol 2.5 MG/3 ML nebule ONE (21:46)
[2020-06-26] MEDS: insulin glargine (Lantus) pen - multi-dose SQ SCH (22:00)
[2020-06-27] VITALS (11 sets, daily range): BP systolic 115–151; BP diastolic 55–87
[2020-06-27 06:16] LABS: MAGNESIUM 2.1 MG/DL (1.5-2.4); POTASSIUM 4.1 MMOL/L (3.5-5.1)
--- NOTE | 2020-06-27 06:44 | NUR ---
Patient in room PCU 3025. I have received report from Hernando SHINE and had the opportunity to ask questions and assume patient care.
[2020-06-27] MEDS: furosemide 20MG tablet PO SCH (07:56)
[2020-06-27] MEDS: spironolactone 25 MG tablet PO SCH ×2 (07:56→20:36)
[2020-06-27] MEDS: losartan 50mg tablet PO SCH (07:56)
[2020-06-27] MEDS: aspirin 81mg tablet.DR PO SCH (07:56)
[2020-06-27] MEDS: atorvastatin 10mg tablet PO SCH (07:56)
[2020-06-27] MEDS: metoprolol succinate 25mg (24-HOUR) SR. Tablet PO SCH (07:56)
[2020-06-27] MEDS: mineral oil/petrolatum, white cream 113gm jar TP SCH ×2 (07:57→21:01)
[2020-06-27] MEDS: normal saline 1000ml 1,000 ML IV SCH (08:40)
--- NOTE | 2020-06-27 10:37 | NUR ---
Patient resting comfortably in bed, family at bedside. No complaints of pain. Bed locked in lowest position, call light within reach, patient instructed to call for assistance, verbalized understanding.
--- NOTE | 2020-06-27 12:00 | NUR ---
Spoke with Dr Lopez about patient code status, stated patient is a full code. Advised MD that there is no order in the computer.
--- NOTE | 2020-06-27 12:35 | NUR ---
PAGER ID: [phone] MESSAGE: [email or web address]. QRE THERE WAS AN ADMIT CLARIFICATION ORDER UNDER "GENERAL" FOR [id number] DONE BY DR. MADRIGAL. SO ALL GOOD, THANK YOU.
--- NOTE | 2020-06-27 18:29 | NUR ---
Patient in room PCU 3025. I have received report from RL Jaimes and had the opportunity to ask questions and assume patient care.
[2020-06-27] MEDS: levoFLOXACIN-Levaquin 750MG/D5 150 ML IV SCH (20:36)
[2020-06-27] MEDS: insulin glargine (Lantus) pen - multi-dose SQ SCH (21:00)
[2020-06-27] MEDS: heparin, porcine 5000 units/ml vial SQ SCH (22:41)
[2020-06-28 02:00] VITALS: BP 91/53
[2020-06-28 06:00] VITALS: BP 110/55
--- NOTE | 2020-06-28 06:11 | NUR ---
Problems reprioritized. Patient report given, questions answered & plan of care reviewed with RL Jaimes.
[2020-06-28 06:28] LABS: BASOPHILS % (AUTO) 0.4 % (0-1); EOSINOPHILS % (AUTO) 0.5 % (0-6); HEMATOCRIT 36.1 % (42.0-52.0); HEMOGLOBIN 11.9 g/dl (14.0-17.9); LYMPHOCYTES # (AUTO) 0.6 X10'3 (1.1-4.8); LYMPHOCYTES % (AUTO) 7.9 % (21-51); MEAN CORPUSCULAR HEMOGLOBIN 27.2 PG (27.0-31.0); MEAN CORPUSCULAR HGB CONC 32.9 g/dL (33.0-36.5); MEAN CORPUSCULAR VOLUME 82.7 FL (78-98); MEAN PLATELET VOLUME 7.6 FL (7.4-10.4); MONOCYTES # (AUTO) 1.1 X10'3 (0-0.9); MONOCYTES % (AUTO) 14.2 % (2-12); NEUTROPHILS # (AUTO) 5.7 X10'3 (1.8-7.7); PLATELET COUNT 244 X10'3 (140-440); RED BLOOD COUNT 4.36 X10'6 (4.70-6.10); RED CELL DISTRIBUTION WIDTH 14.1 % (11.5-14.5); WHITE BLOOD COUNT 7.4 X10'3 (4.5-11.0)
[2020-06-28 06:44] LABS: ALANINE AMINOTRANSFERASE 17 U/L (12-78); ALBUMIN 2.3 G/DL (3.4-5.0); ALBUMIN/GLOBULIN RATIO 0.6 (1.1-1.5); ALKALINE PHOSPHATASE 58 IU/L (46-116); ANION GAP 11 (8-16); ASPARTATE AMINO TRANSFERASE 13 U/L (10-37); BILIRUBIN,TOTAL 0.4 MG/DL (0.1-1.0); BLOOD UREA NITROGEN 19 MG/DL (7-18); CALCIUM 8.6 MG/DL (8.5-10.1); CHLORIDE 101 MMOL/L (99-107); CREATININE 0.95 MG/DL (0.60-1.10); GLUCOSE 92 MG/DL (70-104); MAGNESIUM 2.2 MG/DL (1.5-2.4); PHOSPHORUS 2.9 MG/DL (2.3-4.5); POTASSIUM 3.8 MMOL/L (3.5-5.1); SODIUM 135 MMOL/L (135-145); TOTAL PROTEIN 6.4 G/DL (6.4-8.2); eGFR 80 ML/MIN
[2020-06-28] MEDS: aspirin 81mg tablet.DR PO SCH (07:29)
[2020-06-28] MEDS: losartan 50mg tablet PO SCH (07:30)
[2020-06-28] MEDS: spironolactone 25 MG tablet PO SCH (07:30)
[2020-06-28] MEDS: atorvastatin 10mg tablet PO SCH (07:30)
[2020-06-28] MEDS: furosemide 20MG tablet PO SCH (07:30)
[2020-06-28] MEDS: clopidogrel 75mg tablet PO SCH (07:30)
[2020-06-28] MEDS: metoprolol succinate 25mg (24-HOUR) SR. Tablet PO SCH (07:30)
[2020-06-28] MEDS: levoFLOXACIN-Levaquin 750MG/D5 150 ML IV SCH (07:31)
[2020-06-28] MEDS: mineral oil/petrolatum, white cream 113gm jar TP SCH (07:31)
[2020-06-28] MEDS: heparin, porcine 5000 units/ml vial SQ SCH (07:32)
[2020-06-28] MEDS ORDERED: LOSA50TA64 PO (10:56)
[2020-06-28] MEDS ORDERED: CLOP75TA34 PO (10:56)
[2020-06-28] MEDS ORDERED: LEVO500T89 PO (10:56)
[2020-06-28] MEDS ORDERED: ATOR20TA66 PO (10:56)
[2020-06-28] MEDS ORDERED: METO-395 PO (10:56)
[2020-06-28] MEDS ORDERED: ALBU8.5H8 INH (10:56)
[2020-06-28] MEDS ORDERED: FURO20TA4 PO (10:56)
[2020-06-28] MEDS ORDERED: SPIR25TA PO (10:56)
[2020-06-28] MEDS ORDERED: NITR0.4T51 SL (10:56)
[2020-06-28 11:00] VITALS: BP 124/65
--- NOTE | 2020-06-28 14:13 | NUR ---
Patient discharged home per order. IV removed, Discharge instructions provided to patient and family, verbalized understanding.
[2020-06-28] MEDS ORDERED: lactobacillus rhamnosus 10,000 MMU CELLS/CAPSULE PO SCH (20:00)
[2020-06-29] MEDS ORDERED: levoFLOXACIN 750MG TABLET PO SCH (11:00)
== END 2020-06-28 14:15 | disposition home or self-care (01) | DRG 190 ==
LOC: ER 03:28 → ED HOLD 06:31 → ICU 2S 08:47 → PCU 3S 06-23 15:22
PROVIDERS: ADMIT Internal Medicine Critical Care Medicine; ATTEND Internal Medicine Critical Care Medicine
PROC: 5A09357 Assistance with Respiratory Ventilation, Less than 24 Consecutive Hours, Continuous Positive Airway Pressure (ICD-10-PCS; 2020-06-22)
PROC: B32T1ZZ Computerized Tomography (CT Scan) of Left Pulmonary Artery using Low Osmolar Contrast (ICD-10-PCS; 2020-06-22)
PROC: B3201ZZ Computerized Tomography (CT Scan) of Thoracic Aorta using Low Osmolar Contrast (ICD-10-PCS; 2020-06-22)
PROC: B32S1ZZ Computerized Tomography (CT Scan) of Right Pulmonary Artery using Low Osmolar Contrast (ICD-10-PCS; 2020-06-22)
PROC: 4A023N7 Measurement of Cardiac Sampling and Pressure, Left Heart, Percutaneous Approach (ICD-10-PCS; principal; 2020-06-26)
PROC: B2111ZZ Fluoroscopy of Multiple Coronary Arteries using Low Osmolar Contrast (ICD-10-PCS; 2020-06-26)
PROC: B2151ZZ Fluoroscopy of Left Heart using Low Osmolar Contrast (ICD-10-PCS; 2020-06-26)
PROC: B41F1ZZ Fluoroscopy of Right Lower Extremity Arteries using Low Osmolar Contrast (ICD-10-PCS; 2020-06-26)
PROC: B3111ZZ Fluoroscopy of Right Brachiocephalic-Subclavian Artery using Low Osmolar Contrast (ICD-10-PCS; 2020-06-26)
PROC: B31N1ZZ Fluoroscopy of Other Upper Arteries using Low Osmolar Contrast (ICD-10-PCS; 2020-06-26)
DX: I21.4 Non-ST elevation (NSTEMI) myocardial infarction (principal); I50.23 Acute on chronic systolic (congestive) heart failure; J18.9 Pneumonia, unspecified organism; E11.9 Type 2 diabetes mellitus without complications; E78.5 Hyperlipidemia, unspecified; I11.0 Hypertensive heart disease with heart failure; I16.1 Hypertensive emergency; R09.02 Hypoxemia; I25.119 Atherosclerotic heart disease of native coronary artery with unspecified angina pectoris; I25.5 Ischemic cardiomyopathy; J43.9 Emphysema, unspecified; J93.9 Pneumothorax, unspecified; Z20.822 Contact with and (suspected) exposure to COVID-19; Z79.4 Long term (current) use of insulin; Z87.891 Personal history of nicotine dependence; Z91.19 Patient's noncompliance with other medical treatment and regimen; Z95.5 Presence of coronary angioplasty implant and graft; Z79.899 Other long term (current) drug therapy; Z79.82 Long term (current) use of aspirin
CPT/HCPCS: 36415; 36600; 70450; 71045; 71275; 80048; 80053; 81001; 82803; 82948; 83036; 83605; 83735; 83880; 84100; 84132; 84145; 84484; 85018; 85025; 85379; 85576; 85610; 85730; 86140; 87040; 87081; 87635; 93005; 93306; 93308; 93459; 93880; 93971; 94060; 94640; 94660; 94760; 96374; 99152; 99153; 99291; A4620; A6258; C1760; C1769; C9803; G0378; J1644; J1815; J1940; J1956; J2001; J2250; J3010; J3480; J3490; J7030; Q9967

== ENCOUNTER 2021-01-13 14:02 | Emergency (ER) | payer MEDICAID ==
[~2021-01-13] VITALS: Ht 172.7 cm; Wt 77.3 kg
[~2021-01-13 14:02] MED LIST changes: +ALBU8.5H17 INH; -ATOR10TA87 PO; +ATOR20TA66 PO; -CLOP75TA15 PO; +CLOP75TA34 PO; +FURO20TA4 PO; -FURO40TA4 PO; +LOSA50TA64 PO; -METF500T PO; +METO-395 PO; -METO5DIS PO; +NITR0.4T51 SL; +SPIR25TA PO
[2021-01-13] MEDS ORDERED: normal saline 1000ml 1,000 ML IV ONE ×2 (14:20)
[2021-01-13 14:57] LABS: ALANINE AMINOTRANSFERASE 24 U/L (12-78); ALBUMIN 4.3 G/DL (3.4-5.0); ALKALINE PHOSPHATASE 96 IU/L (46-116); ANION GAP 13 (8-16); BILIRUBIN,TOTAL 0.4 MG/DL (0.1-1.0); BLOOD UREA NITROGEN 21 MG/DL (7-18); BUN/CREATININE RATIO 12.9 (5.4-32.0); CALCIUM 9.7 MG/DL (8.5-10.1); CHLORIDE 104 MMOL/L (99-107); CREATININE 1.63 MG/DL (0.60-1.10); GLUCOSE 84 MG/DL (70-104); POTASSIUM 4.8 MMOL/L (3.5-5.1); SODIUM 142 MMOL/L (135-145); TOTAL CARBON DIOXIDE 24.6 MMOL/L (24-32); TOTAL PROTEIN 8.5 G/DL (6.4-8.2); eGFR 43 ML/MIN
[2021-01-13 14:58] LABS: ASPARTATE AMINO TRANSFERASE 32 U/L (10-37)
[2021-01-13 15:42] LABS: BASOPHILS # (AUTO) 0.1 X10'3 (0-0.2); BASOPHILS % (AUTO) 0.5 % (0-1); EOSINOPHILS % (AUTO) 0.3 % (0-6); HEMOGLOBIN 9.9 g/dl (14.0-17.9); LYMPHOCYTES # (AUTO) 0.7 X10'3 (1.1-4.8); LYMPHOCYTES % (AUTO) 5.2 % (21-51); MEAN CORPUSCULAR HGB CONC 33.2 g/dL (33.0-36.5); MEAN CORPUSCULAR VOLUME 87.2 FL (78-98); MEAN PLATELET VOLUME 7.4 FL (7.4-10.4); MONOCYTES # (AUTO) 0.7 X10'3 (0-0.9); MONOCYTES % (AUTO) 5.2 % (2-12); NEUTROPHILS # (AUTO) 12.7 X10'3 (1.8-7.7); NEUTROPHILS % (AUTO) 88.8 % (42-75); PLATELET COUNT 261 X10'3 (140-440); RED BLOOD COUNT 3.43 X10'6 (4.70-6.10); RED CELL DISTRIBUTION WIDTH 14.3 % (11.5-14.5); WHITE BLOOD COUNT 14.3 X10'3 (4.5-11.0)
[2021-01-13 16:15] VITALS: BP 185/106
[2021-01-13 16:40] LABS: CLARITY,URINE CLEAR (Clear); COLOR,URINE STRAW (Yellow); GLUCOSE, URINE NEGATIVE (Neg); KETONES,URINE NEGATIVE (Neg); LEUKOCYTE ESTERASE ,URINE NEGATIVE (Neg); NITRITES, URINE NEGATIVE (Neg); OCCULT BLOOD,URINE NEGATIVE (Neg); PROTEIN,URINE NEGATIVE (Neg); UA COLLECTION TYPE CLN CATCH MIDSTREAM; UROBILINOGEN,URINE 0.2 E.U/dL (0.2-1.0)
[2021-01-13 16:53] LABS: URINE AMPHETAMINE SCREEN POSITIVE (Neg); URINE BARBITUATE SCREEN NEGATIVE (Neg); URINE BENZODIAZEPINES SCREEN NEGATIVE (Neg); URINE CANNABINOID SCREEN NEGATIVE (Neg); URINE COCAINE SCREEN NEGATIVE (Neg); URINE METHADONE SCREEN NEGATIVE (Neg); URINE OPIATE SCREEN NEGATIVE (Neg); URINE PHENCYCLIDINE SCREEN NEGATIVE (Neg)
== END 2021-01-13 17:45 | disposition home or self-care (01) ==
LOC: ER 14:03
DX: E86.0 Dehydration (principal); R42 Dizziness and giddiness
CPT/HCPCS: 36415; 80053; 80305; 81003; 83880; 84484; 85025; 93005; 96360; 96361; 99284; J7030

== ENCOUNTER 2021-08-02 19:02 | Inpatient (IN) | payer MEDICAID ==
[~2021-08-02] VITALS: Ht 175.3 cm; Wt 76.8 kg
[~2021-08-02 19:02] MED LIST changes: +ATOR20TA PO; -ATOR20TA66 PO; +BENZ-16 PO; +DEXA6TAB PO; -FURO20TA4 PO; +FURO40TA4 PO; +LOSA25TA41 PO; -LOSA50TA64 PO; -SPIR25TA PO; +SPIR25TA5 PO
[2021-08-02 20:00] LABS: BASOPHILS # (AUTO) 0.1 X10'3 (0-0.2); BASOPHILS % (AUTO) 0.7 % (0-1); EOSINOPHILS # (AUTO) 0.4 X10'3 (0-0.9); EOSINOPHILS % (AUTO) 4.6 % (0-6); HEMATOCRIT 35.8 % (42.0-52.0); HEMOGLOBIN 11.5 g/dl (14.0-17.9); LYMPHOCYTES # (AUTO) 0.9 X10'3 (1.1-4.8); MEAN CORPUSCULAR HEMOGLOBIN 25.6 PG (27.0-31.0); MEAN CORPUSCULAR VOLUME 79.9 FL (78-98); MONOCYTES # (AUTO) 0.5 X10'3 (0-0.9); MONOCYTES % (AUTO) 7.1 % (2-12); NEUTROPHILS # (AUTO) 5.8 X10'3 (1.8-7.7); NEUTROPHILS % (AUTO) 75.6 % (42-75); PLATELET COUNT 236 X10'3 (140-440); RED BLOOD COUNT 4.48 X10'6 (4.70-6.10); RED CELL DISTRIBUTION WIDTH 18.3 % (11.5-14.5); WHITE BLOOD COUNT 7.7 X10'3 (4.5-11.0)
[2021-08-02 20:15] LABS: ALANINE AMINOTRANSFERASE 36 U/L (12-78); ALBUMIN 3.2 G/DL (3.4-5.0); ALBUMIN/GLOBULIN RATIO 0.9 (1.1-1.5); ALKALINE PHOSPHATASE 65 IU/L (46-116); ANION GAP 12 (8-16); ASPARTATE AMINO TRANSFERASE 30 U/L (10-37); BILIRUBIN,TOTAL 0.6 MG/DL (0.1-1.0); BLOOD UREA NITROGEN 17 MG/DL (7-18); BUN/CREATININE RATIO 18.3 (5.4-32.0); CALCIUM 8.9 MG/DL (8.5-10.1); CHLORIDE 107 MMOL/L (99-107); CREATININE 0.93 MG/DL (0.60-1.10); GLUCOSE 89 MG/DL (70-104); POTASSIUM 3.6 MMOL/L (3.5-5.1); SODIUM 141 MMOL/L (135-145); TOTAL CARBON DIOXIDE 22.2 MMOL/L (24-32); TOTAL PROTEIN 6.8 G/DL (6.4-8.2); eGFR 81 ML/MIN
[2021-08-02] MEDS ORDERED: iohexol 350MG/ML 100ml bottle IV ONE (22:47)
[2021-08-03] MEDS ORDERED: PERFLUTREN PROTEIN-A MICROSPHR (Optison) 0.22 MG/ML 3ML VIAL IV PRN (01:15)
[2021-08-03] MEDS ORDERED: potassium Cl 20 mEq SR tablet PO PRN ×2 (01:15)
[2021-08-03] MEDS ORDERED: magnesium Cl slow-release 64mg tablet PO PRN (01:15)
[2021-08-03] MEDS ORDERED: ondansetron/PF 4mg/2ml inj IV PRN (01:15)
[2021-08-03] MEDS ORDERED: magnesium 4gm in 100ml NS 100 ML IV PRN (01:15)
[2021-08-03] MEDS ORDERED: potassium CL 10mEq/100ml bag 100 ML IV PRN (01:15)
[2021-08-03] MEDS ORDERED: magnesium 2GM in 50ml NS 50 ML IV PRN (01:15)
[2021-08-03] MEDS ORDERED: magnesium hydroxide 30ml (MOM) UD suspension PO PRN (01:15)
[2021-08-03] MEDS ORDERED: mag hydrox/Alum hydrox/simeth 30ml oral suspension PO PRN (01:15)
[2021-08-03] MEDS ORDERED: acetaminophen 325mg tablet PO PRN (01:15)
[2021-08-03] MEDS ORDERED: nitroGLYCERIN 0.4mg SUBLingual tab SL PRN (01:20)
[2021-08-03] MEDS ORDERED: furosemide 10 MG/1 ML 10ml inj IV ONE (01:30)
[2021-08-03] MEDS ORDERED: albuterol 2.5 MG/3 ML nebule NEB PRN (01:45)
[2021-08-03 02:30] LABS: MAGNESIUM 1.9 MG/DL (1.5-2.4); POTASSIUM 3.6 MMOL/L (3.5-5.1)
[2021-08-03] MEDS: docusate sod 100mg capsule PO SCH ×2 (07:26→20:00)
[2021-08-03] MEDS: furosemide 40mg tablet PO SCH (07:31)
[2021-08-03] MEDS: atorvastatin 20mg tablet PO SCH (07:31)
[2021-08-03] MEDS: losartan 25mg tablet PO SCH (07:31)
[2021-08-03] MEDS: aspirin 81mg, enteric-coated 1 TAB TABLET.DR PO SCH (07:31)
[2021-08-03] MEDS: clopidogrel 75mg tablet PO SCH (07:32)
[2021-08-03] MEDS: metoprolol succinate 25mg (24-HOUR) SR. Tablet PO SCH (08:00)
[2021-08-03] MEDS ORDERED: spironolactone 25 MG tablet PO SCH (08:00)
[2021-08-03] MEDS: K and/or MAG REPLACEMENT MC SCH ×2 (08:00→19:35)
[2021-08-03] MEDS ORDERED: METO-411 PO (09:39)
[2021-08-03 14:20] VITALS: BP 138/84
--- NOTE | 2021-08-03 14:20 | NUR ---
Pt received on unit. PT is alert/oriented x 4 and can make his needs be known. Pt does not have any c/o pain or s/s of distress at this time. Call light within reach. Will continue to monitor.
[2021-08-03 15:00] VITALS: BP 133/66
[2021-08-03 18:00] VITALS: BP 142/89
--- NOTE | 2021-08-03 18:30 | NUR ---
Problems reprioritized. Patient report given, questions answered & plan of care reviewed with RL Dukes.
[2021-08-03 22:00] VITALS: BP 159/87
[2021-08-04 02:00] VITALS: BP 142/87
[2021-08-04 06:00] VITALS: BP 142/93
[2021-08-04 07:06] LABS: BASOPHILS # (AUTO) 0.1 X10'3 (0-0.2); EOSINOPHILS # (AUTO) 0.5 X10'3 (0-0.9); EOSINOPHILS % (AUTO) 6.3 % (0-6); HEMATOCRIT 39.3 % (42.0-52.0); HEMOGLOBIN 12.7 g/dl (14.0-17.9); LYMPHOCYTES # (AUTO) 0.7 X10'3 (1.1-4.8); LYMPHOCYTES % (AUTO) 9.1 % (21-51); MEAN CORPUSCULAR HEMOGLOBIN 25.6 PG (27.0-31.0); MEAN CORPUSCULAR HGB CONC 32.3 g/dL (33.0-36.5); MEAN CORPUSCULAR VOLUME 79.2 FL (78-98); MEAN PLATELET VOLUME 8.2 FL (7.4-10.4); MONOCYTES # (AUTO) 0.7 X10'3 (0-0.9); MONOCYTES % (AUTO) 8.9 % (2-12); NEUTROPHILS # (AUTO) 5.7 X10'3 (1.8-7.7); NEUTROPHILS % (AUTO) 74.7 % (42-75); PLATELET COUNT 271 X10'3 (140-440); RED BLOOD COUNT 4.96 X10'6 (4.70-6.10); RED CELL DISTRIBUTION WIDTH 18.3 % (11.5-14.5); WHITE BLOOD COUNT 7.7 X10'3 (4.5-11.0)
[2021-08-04 07:20] LABS: ALANINE AMINOTRANSFERASE 29 U/L (12-78); ALBUMIN/GLOBULIN RATIO 0.8 (1.1-1.5); ALKALINE PHOSPHATASE 63 IU/L (46-116); ANION GAP 7 (8-16); ASPARTATE AMINO TRANSFERASE 21 U/L (10-37); BILIRUBIN,TOTAL 0.7 MG/DL (0.1-1.0); BLOOD UREA NITROGEN 23 MG/DL (7-18); BUN/CREATININE RATIO 22.3 (5.4-32.0); CALCIUM 9.1 MG/DL (8.5-10.1); CHLORIDE 108 MMOL/L (99-107); CREATININE 1.03 MG/DL (0.60-1.10); GLUCOSE 96 MG/DL (70-104); POTASSIUM 3.6 MMOL/L (3.5-5.1); SODIUM 140 MMOL/L (135-145); TOTAL CARBON DIOXIDE 24.8 MMOL/L (24-32); TOTAL PROTEIN 6.7 G/DL (6.4-8.2); eGFR 72 ML/MIN
[2021-08-04] MEDS: metoprolol succinate 25mg (24-HOUR) SR. Tablet PO SCH (07:25)
[2021-08-04] MEDS: losartan 25mg tablet PO SCH (07:25)
[2021-08-04] MEDS: furosemide 40mg tablet PO SCH (07:25)
[2021-08-04] MEDS: aspirin 81mg, enteric-coated 1 TAB TABLET.DR PO SCH (07:25)
[2021-08-04] MEDS: atorvastatin 20mg tablet PO SCH (07:25)
[2021-08-04] MEDS: clopidogrel 75mg tablet PO SCH (07:25)
[2021-08-04] MEDS: docusate sod 100mg capsule PO SCH ×2 (07:26→20:15)
[2021-08-04] MEDS: K and/or MAG REPLACEMENT MC SCH ×2 (07:57→20:00)
[2021-08-04 11:00] VITALS: BP 120/79
--- NOTE | 2021-08-04 13:10 | NUR ---
Page Sent PAGER ID: [phone] MESSAGE: Pt Vitaly Rangel in [id number] has DC orders but [facility] will not be here today. Can you please DC orders? Thank you Beatris U [phone]
[2021-08-04 15:00] VITALS: BP 123/57
--- NOTE | 2021-08-04 18:19 | NUR ---
Patient in room PCU 3012. I have received report from ANTOINE SHINE and had the opportunity to ask questions and assume patient care.
[2021-08-04 18:56] VITALS: BP 121/70
[2021-08-04 22:56] VITALS: BP 138/71
[2021-08-05 02:00] VITALS: BP 141/80
[2021-08-05 06:00] VITALS: BP 144/75
[2021-08-05 06:10] LABS: ALANINE AMINOTRANSFERASE 25 U/L (12-78); ALBUMIN 3.1 G/DL (3.4-5.0); ALBUMIN/GLOBULIN RATIO 0.9 (1.1-1.5); ALKALINE PHOSPHATASE 59 IU/L (46-116); ANION GAP 8 (8-16); ASPARTATE AMINO TRANSFERASE 18 U/L (10-37); BILIRUBIN,TOTAL 0.5 MG/DL (0.1-1.0); BLOOD UREA NITROGEN 22 MG/DL (7-18); BUN/CREATININE RATIO 22.9 (5.4-32.0); CHLORIDE 108 MMOL/L (99-107); CREATININE 0.96 MG/DL (0.60-1.10); GLUCOSE 94 MG/DL (70-104); POTASSIUM 3.9 MMOL/L (3.5-5.1); SODIUM 141 MMOL/L (135-145); TOTAL PROTEIN 6.6 G/DL (6.4-8.2); eGFR 78 ML/MIN
[2021-08-05 06:20] LABS: BASOPHILS # (AUTO) 0.1 X10'3 (0-0.2); EOSINOPHILS # (AUTO) 0.6 X10'3 (0-0.9); EOSINOPHILS % (AUTO) 6.9 % (0-6); HEMATOCRIT 39.6 % (42.0-52.0); HEMOGLOBIN 12.7 g/dl (14.0-17.9); LYMPHOCYTES # (AUTO) 0.8 X10'3 (1.1-4.8); LYMPHOCYTES % (AUTO) 10.3 % (21-51); MEAN CORPUSCULAR HEMOGLOBIN 25.3 PG (27.0-31.0); MEAN PLATELET VOLUME 8.3 FL (7.4-10.4); MONOCYTES # (AUTO) 0.7 X10'3 (0-0.9); MONOCYTES % (AUTO) 8.3 % (2-12); NEUTROPHILS # (AUTO) 5.9 X10'3 (1.8-7.7); NEUTROPHILS % (AUTO) 73.5 % (42-75); PLATELET COUNT 296 X10'3 (140-440); RED BLOOD COUNT 5.01 X10'6 (4.70-6.10); RED CELL DISTRIBUTION WIDTH 17.5 % (11.5-14.5); WHITE BLOOD COUNT 8.1 X10'3 (4.5-11.0)
--- NOTE | 2021-08-05 06:22 | NUR ---
Problems reprioritized. Patient report given, questions answered & plan of care reviewed with BETHANIE RN.
--- NOTE | 2021-08-05 06:30 | NUR ---
Patient in room PCU 3012. I have received report from RL Baker and had the opportunity to ask questions and assume patient care.
[2021-08-05] MEDS: K and/or MAG REPLACEMENT MC SCH ×2 (08:00→20:00)
[2021-08-05] MEDS: docusate sod 100mg capsule PO SCH ×2 (08:00→20:00)
[2021-08-05] MEDS: aspirin 81mg, enteric-coated 1 TAB TABLET.DR PO SCH (08:40)
[2021-08-05] MEDS: atorvastatin 20mg tablet PO SCH (08:40)
[2021-08-05] MEDS: clopidogrel 75mg tablet PO SCH (08:40)
[2021-08-05] MEDS: losartan 25mg tablet PO SCH (08:40)
[2021-08-05] MEDS: furosemide 40mg tablet PO SCH (08:40)
[2021-08-05] MEDS: metoprolol succinate 25mg (24-HOUR) SR. Tablet PO SCH (08:41)
[2021-08-05 11:00] VITALS: BP 146/78
[2021-08-05 15:00] VITALS: BP 104/66
[2021-08-05 18:00] VITALS: BP 135/63
--- NOTE | 2021-08-05 18:20 | NUR ---
Problems reprioritized. Patient report given, questions answered & plan of care reviewed with RL Navarrete.
[2021-08-05 22:00] VITALS: BP 121/76
[2021-08-06 02:00] VITALS: BP 124/76
[2021-08-06 05:54] LABS: BASOPHILS # (AUTO) 0.1 X10'3 (0-0.2); BASOPHILS % (AUTO) 0.8 % (0-1); EOSINOPHILS # (AUTO) 0.5 X10'3 (0-0.9); EOSINOPHILS % (AUTO) 7.5 % (0-6); HEMATOCRIT 40.3 % (42.0-52.0); LYMPHOCYTES # (AUTO) 0.8 X10'3 (1.1-4.8); MEAN CORPUSCULAR HEMOGLOBIN 25.3 PG (27.0-31.0); MEAN CORPUSCULAR HGB CONC 32.1 g/dL (33.0-36.5); MEAN CORPUSCULAR VOLUME 78.7 FL (78-98); MEAN PLATELET VOLUME 8.1 FL (7.4-10.4); MONOCYTES # (AUTO) 0.8 X10'3 (0-0.9); MONOCYTES % (AUTO) 11.2 % (2-12); NEUTROPHILS % (AUTO) 69.5 % (42-75); PLATELET COUNT 298 X10'3 (140-440); RED BLOOD COUNT 5.13 X10'6 (4.70-6.10); RED CELL DISTRIBUTION WIDTH 17.6 % (11.5-14.5); WHITE BLOOD COUNT 7.2 X10'3 (4.5-11.0)
[2021-08-06 06:00] VITALS: BP 106/62
[2021-08-06 06:09] LABS: ALANINE AMINOTRANSFERASE 24 U/L (12-78); ALBUMIN 3.2 G/DL (3.4-5.0); ALBUMIN/GLOBULIN RATIO 0.9 (1.1-1.5); ALKALINE PHOSPHATASE 63 IU/L (46-116); ANION GAP 9 (8-16); ASPARTATE AMINO TRANSFERASE 20 U/L (10-37); BILIRUBIN,TOTAL 0.4 MG/DL (0.1-1.0); BLOOD UREA NITROGEN 25 MG/DL (7-18); CALCIUM 9.2 MG/DL (8.5-10.1); CHLORIDE 107 MMOL/L (99-107); CREATININE 1.04 MG/DL (0.60-1.10); GLUCOSE 91 MG/DL (70-104); SODIUM 142 MMOL/L (135-145); TOTAL CARBON DIOXIDE 25.8 MMOL/L (24-32); TOTAL PROTEIN 6.8 G/DL (6.4-8.2); eGFR 71 ML/MIN
--- NOTE | 2021-08-06 06:30 | NUR ---
Patient in room PCU 3012. I have received report from RL Navarrete and had the opportunity to ask questions and assume patient care.
[2021-08-06] MEDS: docusate sod 100mg capsule PO SCH (08:00)
[2021-08-06] MEDS: clopidogrel 75mg tablet PO SCH (08:00)
[2021-08-06] MEDS: furosemide 40mg tablet PO SCH (08:00)
[2021-08-06] MEDS: metoprolol succinate 25mg (24-HOUR) SR. Tablet PO SCH (08:00)
[2021-08-06] MEDS: atorvastatin 20mg tablet PO SCH (08:00)
[2021-08-06] MEDS: K and/or MAG REPLACEMENT MC SCH (08:00)
[2021-08-06] MEDS: aspirin 81mg, enteric-coated 1 TAB TABLET.DR PO SCH (08:00)
[2021-08-06] MEDS: losartan 25mg tablet PO SCH (08:00)
[2021-08-06 11:00] VITALS: BP 107/84
--- NOTE | 2021-08-06 12:41 | NUR ---
PAGER ID: [phone] MESSAGE: Room: 7872C: Claire: I've confirmed with the [employer] that this pt will be fitted this afternoon/early evening. Would you like to put in a discharge order for after this event? RL Sanchez [phone]
--- NOTE | 2021-08-06 14:35 | NUR ---
Pt discharged to home from the hospital after receiving a new life vest. Discharge paperwork was reviewed with the pt and their family member. All questions were answered by this narrative writer. No new prescriptions were provided. PIV was removed. Belongings were returned to the pt.
== END 2021-08-06 14:35 | disposition home or self-care (01) | DRG 190 ==
LOC: ER 19:03 → ED HOLD 08-03 01:18 → PCU 3S 08-03 14:14
PROVIDERS: ADMIT Internal Medicine; ATTEND Internal Medicine
PROC: B32T1ZZ Computerized Tomography (CT Scan) of Left Pulmonary Artery using Low Osmolar Contrast (ICD-10-PCS; principal; 2021-08-02)
PROC: B3201ZZ Computerized Tomography (CT Scan) of Thoracic Aorta using Low Osmolar Contrast (ICD-10-PCS; 2021-08-02)
PROC: B32S1ZZ Computerized Tomography (CT Scan) of Right Pulmonary Artery using Low Osmolar Contrast (ICD-10-PCS; 2021-08-02)
DX: I21.4 Non-ST elevation (NSTEMI) myocardial infarction (principal); J96.20 Acute and chronic respiratory failure, unspecified whether with hypoxia or hypercapnia; I50.23 Acute on chronic systolic (congestive) heart failure; I11.0 Hypertensive heart disease with heart failure; E11.9 Type 2 diabetes mellitus without complications; E78.5 Hyperlipidemia, unspecified; I25.10 Atherosclerotic heart disease of native coronary artery without angina pectoris; J43.9 Emphysema, unspecified; Z79.02 Long term (current) use of antithrombotics/antiplatelets; Z79.82 Long term (current) use of aspirin; I25.2 Old myocardial infarction; Z79.899 Other long term (current) drug therapy; Z86.16 Personal history of COVID-19; Z86.73 Personal history of transient ischemic attack (TIA), and cerebral infarction without residual deficits; Z87.891 Personal history of nicotine dependence; Z98.61 Coronary angioplasty status
CPT/HCPCS: 36415; 71045; 71275; 80053; 83735; 83880; 84132; 84484; 85025; 87081; 87635; 93005; 93306; 94760; 99285; C9803; G0378; J1940; Q9967